=== PATIENT | male | born 1980 | race Caucasian/White ===

== ENCOUNTER → 2016-07-10 | Outpatient (CLI) | payer OTHER, BC ==
[~2016-07-10] MED LIST: ACET325T96 PO; CALC667C4 PO; COPP1TAB PO; ESCI10TA17 PO; FAMO20TA11 PO; GABA-112 PO; MELATAB2 PO
--- NOTE | 2016-07-14 16:02 | EEG Procedure Note ---
EEG Procedure Note Date of Service July 10, 2016. Start / End Times Start Time: 10:15am End Time: 10:36am Referring Physician Dr Cerda History 35 year old male with syncope. EEG to evaluate for possible seizure etiology. Home meds: Gabapentin Home Medication List Scheduled Calcium Acetate (Phoslo 667 Mg), 4 CAPSULES PO TIDM Copper Gluconate (Copper), 2 MG PO QAM Escitalopram (Lexapro), 10 MG PO QAM Famotidine (Pepcid), 20 MG PO QAM Gabapentin (Neurontin), 100 MG PO HS Melatonin (Melatonin Maximum Strengt), 1 TAB PO HS Scheduled PRN Acetaminophen Tab (Tylenol), 325 MG PO PRN PRN for Pain Description This is a 21 electrode EEG with a single channel dedicated to limited EKG. The electrodes were placed in accordance with the International 10-20 system. At the start of the recording the patient was in an awake state. The background was well organized and composed of symmetric mixed alpha and beta frequencies. There was a well formed symmetric moderate amplitude posterior dominant rhythm of 8-9Hz that was reactive to eye opening and closure. Hyperventilation with good effort produced no abnormalities. Photic stimulation at various frequencies produced no abnormalities. Drowsiness was indicated by slowing of the background rhythm and loss of muscle artifact. There was no sleep transients. Interpretation This is a normal awake and drowsy routine EEG There was no electrographic seizures or epileptiform discharges. Clinical Correlation A normal EEG does not rule out epilepsy if there is a strong clinical suspicion.
== END | disposition home or self-care (01) ==
LOC: C.NEUR 09:58
PROVIDERS: ATTEND Internal Medicine
DX: R55 Syncope and collapse (principal)

== ENCOUNTER 2020-04-07 15:36 | Observation (INO) ==
--- NOTE | 2020-04-07 16:22 | Emergency Department Note ---
Impression & Plan Acute anxiety, Depression with suicidal ideation ED Provider Note Provider: Johnson Bell MD DATE OF SERVICE:04/07/2020 CHIEF COMPLAINT: Emotional breakdown HISTORY OF PRESENT ILLNESS: Patient is a 39-year-old gentleman history of end- stage renal disease on dialysis with prior failed kidney transplants, hepatitis C, depression/anxiety presenting today from home stating he is having emotional breakdown today. Patient states the holidays are little bit tough but thought things would be okay with his brother visiting him and his mother today and then also down to have dinner without mass. Evidently his brother and his brother's family showed up and wearing masks and this significantly stressed and upset the patient. He states he became very anxious and agitated and things fell apart according to him. Patient denies wishing to harm anybody today or threatening to do so. Patient states he felt very depressed and like he wanted to harm himself however. Patient states he had some thoughts of wanting to possibly throw himself down the stairs or jump off his house. Patient states distantly about 20 years ago he did attempt suicide with medications. Patient follows locally with psychiatry and a counselor. Patient states compliant with home medications and states he did take a dose of his Xanax prior to coming over and that may have helped a little bit. Did take a little bit a nap after this but still quite anxious when awoke and came here for evaluation. Patient states he is just very anxious as well as depressed and is having some thoughts again of wanting to harm himself and not be alive. Denies significant physical pain complaint at this time. Given the holidays his dialysis is scheduled for tomorrow. Patient psychiatrist later calls and states that she received a call from the patient's mother and repeated a similar story. She is concerned his ability to go home and care for himself. REVIEW OF SYSTEMS: A total of 10 review of systems was obtained and negative except as stated above in the HPI. PAST MEDICAL HISTORY: As noted above MEDICATIONS: Reviewed home medications SOCIAL HISTORY: Denies drugs, alcohol, or tobacco use. Lives at home with his mother, on disability PHYSICAL EXAM: GENERAL: alert and oriented sitting in bed crying with Kleenex Head: normocephalic and atraumatic EYES: No injection, discharge or icterus. NECK: Trachea midline. Supple. ENT: Mucous membranes pink and moist LUNGS: Airway patent. No retractions. Breath sounds clear with good air entry bilaterally. HEART: Regular rate and rhythm. No chest wall tenderness SKIN: Acyanotic, warm, dry, without rashes EXTREMITIES: Without significant swelling or deformity of the lower extremities. NEUROLOGICAL: No focal deficits. No aphasia. No facial droop or slurred speech. Psych: Patient states he is feeling highly anxious and depressed. His animated and tearful breaking down into sobbing at various points. States he has had thoughts of going to harm self and possibly jumping off his roof or down the steps. Denies homicidal ideation or wishing to harm anybody else. Denies hallucination. EK beats per normal sinus rhythm PVC or PAC. No acute ST segment elevation noted. QTc 448. Compared to previous from August 17, 2018 no significant change. PDMP was checked without noted issue. Patient's laboratory studies reviewed. Differential includes Mood disorder, infection, hypoglycemia, electrolyte abnormalities, cardiac sources, intracerebral event, toxicologic, trauma, neurologic, as well as other pathologies. IMPRESSION/MEDICAL DECISION MAKING: Patient presents after an emotional breakdown per his report and emotional on exam here stating depression with some suicidal ideation. History of suicide attempt in the past. Complex medical history including dialysis scheduled for tomorrow. Denies current attempt to harm himself. Basic labs were obtained without evidence of significant overdose at this time. Creatinine elevation consistent with his need for dialysis tomorrow. No severe electrolyte abnormalities and do not believe he needs emergent dialysis at this time tonight. Patient is anuric and does not make urine so urine samples were not collected.. Some baseline leukopenia and anemia are noted and similar to previous values. Patient wishes for possible inpatient treatment and patient psychiatrist called in and states she believes he would benefit from this as well. Patient was seen by our psychiatric case management coordinator for evaluation as well. Patient requesting inpatient treatment I believe this is very reasonable given that he had significant thoughts of wanting to harm self tonight and actually had some plans. Referrals made but complex medical history will limit available inpatient psychiatric bed. Patient did later coming back to his room and did discuss with me possibility of wanting to stop all medications and dialysis and discussed with him given that he is having acute depression with some suicidal ideation this could not occur acutely wanted to be part of a possible longer discussion when he is stable from a psychiatric standpoint. He acknowledges. Evening meds ordered. As it appears is unlikely he will get an inpatient psychiatric bed overnight and requires dialysis scheduled for tomorrow, discussed with nephrology via phone who stated they would be in-house and available tomorrow to possibly perform dialysis if needed; did discuss possible need to work with case management to determine appropriate status for the patient for this to be done from the ER versus as an inpatient. Discussed with her case management coordinator is here. Unsure if the patient requires an observation or admitted status here for this to occur. No emergent need for dialysis tonight. Given his mental status do not feel the patient is stable for discharge home and follow-up. Case management will continue to discuss with her casting and pasting supervisor etc. tomorrow morning. Will sign the patient out pending psychiatric placement. Will need to discuss with nephrology tomorrow morning about obtaining dialysis for the patient tomorrow. Do not see an acute reason for medical admission at this time however if it becomes necessary tomorrow to facilitate his dialysis -- which he will need tomorrow-- may unfortunately be necessary at that time. DIAGNOSIS: Anxiety, depression with suicidal ideation DISPOSITION: Signed out pending inpatient psychiatric placement to Dr. He Past Med/Surg History Medical History (Updated 04/07/20 @ 17:26 by Johnson Bell M.D.) Anxiety Depression ESRD on dialysis H/O genitourinary system abnormality h/o bladder enterocystoplasty, h/o urethra surgery mitrofanoff procedure Hepatitis C Kidney transplant failure Social History Smoking Status: Never smoker Second Hand Exposure: No; Hx Alcohol Use: Yes Alcohol type: hard liquor Hx Substance Use: No Preferred Language: Ukrainian Communication Ability: Effective Supervisor [employer] Required: No Beliefs That Will Affect Care: None Current Living Situation: Parent Feels Safe at Home: No Assistive Devices: None Allergies Allergies Allergy/AdvReac Type Severity Reaction Status Date / Time meperidine Allergy Unknown "unresponsi Verified 04/07/20 16:21 ve" gentamicin AdvReac Mild HALLUCINATI Verified 04/07/20 16:21 ONS Home Meds Home Medications Medication Instructions Recorded Confirmed copper gluconate 2 mg PO QDL 03/02/18 04/07/20 escitalopram oxalate 10 mg PO QAM 03/02/18 04/07/20 famotidine 20 mg PO QDL 03/02/18 04/07/20 lanthanum 1,000 mg PO TIDM 03/02/18 04/07/20 sertraline 50 mg tablet 50 mg PO DAILY 01/12/19 04/07/20 buspirone 10 mg PO BID 04/07/20 04/07/20 Previous Rx's Medication Instructions Recorded clonazepam 1 mg tablet 1 mg PO HS #30 tab 12/10/18 vit B complex with C-folic acid 5 1 tab PO DAILY #90 tab 08/13/19 mg-copper 1.5 mg-zinc 25 mg tablet gabapentin 100 mg capsule 100 mg PO HS #90 cap 10/15/19 Results & Data (ED) Vital Signs Vital Signs - 24 hr 04/07/20 15:41 04/07/20 16:03 04/07/20 19:44 Temperature 36.5 C Temperature Source Oral Oral Pulse Rate 81 Pulse Rate [Finger] 65 Respiratory Rate 18 14 Respiratory Effort / Characteristics Non-Labored Spontaneous Respiratory Depth Normal Blood Pressure 207/95 H Blood Pressure [Right Arm] 178/98 H Blood Pressure Mean 132 Blood Pressure Mean [Right Arm] 124 Blood Pressure Position Sitting Pulse Oximetry 97 99 Oxygen Delivery Method Room Air Room Air Sepsis Recent Fever Within 48 Hours No Sepsis New/Unexplained Change in Mental Status No Sepsis Action Taken by Nursing No Action Required Laboratory Data Result diagrams: 04/07/20 16:16 04/07/20 16:16 Lab Results 04/07/20 04/07/20 04/07/20 Range/Units 16:16 16:16 16:16 WBC 4.46 L (4.8-10.8) K/uL RBC 3.27 L (4.7-6.1) M/uL Hgb 10.2 L (14.0-18.0) g/dL Hct 31.9 L (42-52) % MCV 97.6 (80-100) fL MCH 31.2 (25-34) pg MCHC 32.0 (32-36) g/dL RDW Std Deviation 48.7 H (36.4-46.3) fL RDW Coeff of Greg 13.8 (11.5-14.5) % Plt Count 214 (130-400) K/uL MPV 10.6 H (7.4-10.4) fL Immature Gran % (Auto) 0.0 % Neut % (Auto) 55.2 % Lymph % (Auto) 35.2 % Dickey % (Auto) 7.4 % Eos % (Auto) 2.0 % Baso % (Auto) 0.2 % Neut # (Auto) 2.46 (1.4-6.5) K/uL Lymph # (Auto) 1.57 (1.2-3.4) K/uL Dickey # (Auto) 0.33 (0.11-0.59) K/uL Eos # (Auto) 0.09 (0-0.5) K/uL Baso # (Auto) 0.01 (0-0.2) K/uL Immature Gran # (Auto) 0.00 (0.00-0.02) K/uL Sodium 141 (136-145) mmol/L Potassium 4.6 (3.5-5.1) mmol/L Chloride 101 (98-107) mmol/L Carbon Dioxide 30 (21-32) mmol/L Anion Gap 10.0 (3-11) BUN 69 H (7-18) mg/dl Creatinine 11.50 H* (0.6-1.4) mg/dl Est Cr Clr Drug Dosing Not Reportable Est GFR ( Amer) 5.7 Est GFR (Non-Af Amer) 4.9 BUN/Creatinine Ratio 6.1 L (10-20) Glucose 100 H (70-99) mg/dl Calcium 8.9 (8.5-10.1) mg/dl Total Bilirubin 0.3 (0.2-1) mg/dl AST 21 (15-37) U/L ALT 16 (12-78) U/L Alkaline Phosphatase 138 H (45-117) U/L Total Protein 7.6 (6.4-8.2) gm/dl Albumin 3.4 (3.4-5.0) gm/dl Globulin 4.2 H (2.5-4.0) gm/dl Albumin/Globulin Ratio 0.8 L (0.9-2) TSH 1.950 (0.300-4.500) uIu/ml Salicylates < 1.7 L (2.8-20) mg/dl Acetaminophen < 2 L (10-30) ug/ml Ethyl Alcohol mg/dL (0-3) mg/dl SARS-CoV-2 Ag (Rapid) (Negative) 04/07/20 04/07/20 Range/Units 16:16 Unknown WBC (4.8-10.8) K/uL RBC (4.7-6.1) M/uL Hgb (14.0-18.0) g/dL Hct (42-52) % MCV (80-100) fL MCH (25-34) pg MCHC (32-36) g/dL RDW Std Deviation (36.4-46.3) fL RDW Coeff of Greg (11.5-14.5) % Plt Count (130-400) K/uL MPV (7.4-10.4) fL Immature Gran % (Auto) % Neut % (Auto) % Lymph % (Auto) % Dickey % (Auto) % Eos % (Auto) % Baso % (Auto) % Neut # (Auto) (1.4-6.5) K/uL Lymph # (Auto) (1.2-3.4) K/uL Dickey # (Auto) (0.11-0.59) K/uL Eos # (Auto) (0-0.5) K/uL Baso # (Auto) (0-0.2) K/uL Immature Gran # (Auto) (0.00-0.02) K/uL Sodium (136-145) mmol/L Potassium (3.5-5.1) mmol/L Chloride (98-107) mmol/L Carbon Dioxide (21-32) mmol/L Anion Gap (3-11) BUN (7-18) mg/dl Creatinine (0.6-1.4) mg/dl Est Cr Clr Drug Dosing Est GFR ( Amer) Est GFR (Non-Af Amer) BUN/Creatinine Ratio (10-20) Glucose (70-99) mg/dl Calcium (8.5-10.1) mg/dl Total Bilirubin (0.2-1) mg/dl AST (15-37) U/L ALT (12-78) U/L Alkaline Phosphatase (45-117) U/L Total Protein (6.4-8.2) gm/dl Albumin (3.4-5.0) gm/dl Globulin (2.5-4.0) gm/dl Albumin/Globulin Ratio (0.9-2) TSH (0.300-4.500) uIu/ml Salicylates (2.8-20) mg/dl Acetaminophen (10-30) ug/ml Ethyl Alcohol mg/dL < 3.0 (0-3) mg/dl SARS-CoV-2 Ag (Rapid) Negative (Negative) Administered Medications Discontinued Medications Clonazepam (Clonazepam 1 Mg Tab) 1 mg PO NOW STA Stop: 04/07/20 22:07 Last Admin: 04/07/20 22:32 Dose: 1 mg Documented by: [id number] Gabapentin (Gabapentin 100 Mg Cap) 100 mg PO NOW STA Stop: 04/07/20 22:07 Last Admin: 04/07/20 22:31 Dose: 100 mg Documented by: [id number] Sertraline HCl (Sertraline Hcl 50 Mg Tablet) 50 mg PO NOW STA Stop: 04/07/20 22:07 Last Admin: 04/07/20 22:31 Dose: 50 mg Documented by: [id number] Discharge Plan Visit Data Chief Complaint: Mental Health Evaluation Stated Complaint: EMOTIONAL BREAKDOWN ED Provider: Johnson Bell Discharge Problem: Acute anxiety, Depression with suicidal ideation Patient Disposition: Still a Patient Forms Stand Alone Forms: [facility], Suicide Prevention Resources Prescriptions Prescriptions: No Action clonazepam [Klonopin] 1 mg tablet 1 mg PO HS Qty: 30 RF: 2 vit B nind-O-QQ-copper-zinc 5-1.5-25 mg tablet 1 tab PO DAILY Qty: 90 RF: 3 gabapentin 100 mg capsule 100 mg PO HS Qty: 90 RF: 3 sertraline 50 mg tablet 50 mg PO DAILY RF: 0 famotidine 20 mg tablet 20 mg PO QDL RF: 0 escitalopram oxalate 10 mg tablet 10 mg PO QAM RF: 0 lanthanum 1,000 mg tablet,chewable 1,000 mg PO TIDM RF: 0 copper gluconate 2 mg capsule 2 mg PO QDL RF: 0 buspirone 10 mg tablet 10 mg PO BID RF: 0 Referrals Referrals: Gaurang Caballero MD [Primary Care Provider] -
[2020-04-07 16:32] LABS: Basophils # (auto) 0.01 K/uL (0-0.2); Basophils % (auto) 0.2 %; Eosinophils # (auto) 0.09 K/uL (0-0.5); Hematocrit (blood only) 31.9 % (42-52); Hemoglobin 10.2 g/dL (14.0-18.0); Lymphocytes # (auto) 1.57 K/uL (1.2-3.4); Lymphocytes % (auto) 35.2 %; Mean Corpuscular Hemoglobin 31.2 pg (25-34); Mean Corpuscular Volume 97.6 fL (80-100); Mean Platelet Volume 10.6 fL (7.4-10.4); Monocytes # (auto) 0.33 K/uL (0.11-0.59); Monocytes % (auto) 7.4 %; Neutrophils # (auto) 2.46 K/uL (1.4-6.5); Neutrophils % (auto) 55.2 %; Platelet Count 214 K/uL (130-400); RDW Coefficient of Variation 13.8 % (11.5-14.5); RDW Standard Deviation 48.7 fL (36.4-46.3); Red Blood Count 3.27 M/uL (4.7-6.1); White Blood Count 4.46 K/uL (4.8-10.8)
[2020-04-07 17:04] LABS: Acetaminophen < 2 ug/ml (10-30); Alanine Aminotransferase 16 U/L (12-78); Albumin Globulin Ratio 0.8 (0.9-2); Albumin Level 3.4 gm/dl (3.4-5.0); Alkaline Phosphatase 138 U/L (45-117); Aspartate Aminotransferase 21 U/L (15-37); BUN Creatinine Ratio 6.1 (10-20); Bilirubin,Total 0.3 mg/dl (0.2-1); Blood Urea Nitrogen 69 mg/dl (7-18); Calcium 8.9 mg/dl (8.5-10.1); Carbon Dioxide 30 mmol/L (21-32); Chloride 101 mmol/L (98-107); Est GFR (African American) 5.7; Est GFR (Non-African American) 4.9; Globulin 4.2 gm/dl (2.5-4.0); Glucose 100 mg/dl (70-99); Potassium 4.6 mmol/L (3.5-5.1); Salicylate < 1.7 mg/dl (2.8-20); Sodium 141 mmol/L (136-145); Total Protein 7.6 gm/dl (6.4-8.2)
[2020-04-07] MEDS ORDERED: ESCITALOPRAM OXALATE 10 MG TAB PO STA (22:06)
[2020-04-07] MEDS ORDERED: clonazePAM 1 MG TAB PO STA (22:06)
[2020-04-07] MEDS ORDERED: SERTRALINE HCL 50 MG TABLET PO STA (22:06)
[2020-04-07] MEDS ORDERED: GABAPENTIN 100 MG CAP PO STA (22:06)
--- NOTE | 2020-04-08 06:57 | Emergency Department Note ---
ED Visit Note Pt signed out to me at change of shift from Dr. Bell. Pt medically cleared and voluntary at this time, awaiting placement. Please see his note for additional details. Pt is on chronic HD and will need HD in the morning. Dr. Bell did speak with Dr. Martinez about the situation. Will attempt to navigate logistics of having pt dialyzed here in the morning and eventual placement in a psych facility. Pt signed out to Dr. Cooley. .
[2020-04-08] MEDS: busPIRone 5 MG TAB PO SCH ×2 (08:13→21:03)
[2020-04-08 08:45] LABS: BUN Creatinine Ratio 5.8 (10-20); Blood Urea Nitrogen 77 mg/dl (7-18); Calcium 8.8 mg/dl (8.5-10.1); Carbon Dioxide 27 mmol/L (21-32); Chloride 103 mmol/L (98-107); Est GFR (African American) 4.9; Est GFR (Non-African American) 4.2; Glucose 97 mg/dl (70-99); Potassium 5.1 mmol/L (3.5-5.1); Sodium 142 mmol/L (136-145)
--- NOTE | 2020-04-08 09:13 | Emergency Department Note ---
ED Visit Note Patient is a 39-year-old male who was signed out to me by Dr. He. He presented willingly has been having suicidal ideations and has a plan to kill himself. He is a dialysis patient. Normally gets it Friday. Due to the holiday his last dialysis was Friday and he was switching to Friday dialysis. He boarded overnight and the case was discussed with nephrology. They were agreeable with dialyzing him but awaiting care managers to determine if he will be admitted and if it was possible to place him today. Does not seem at this time as though it is possible to place. Discussed with the hospitalist for observation and patient will be admitted and then dialysis will be obtained from the inpatient world. I did discuss with Dr. Salamanca and she is aware and has him on the schedule for dialysis. .
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
--- NOTE | 2020-04-08 11:41 | Nephrology Consultation ---
Date of Consultation April 08, 2020 Assessment & Plan (1) ESRD on dialysis: ESRD on HD MWF at [facility] via AVF, admitted with suicidal ideation. BP, volume status and electrolyte acceptable. Due for dialysis today. -- Plan for dialysis today for 4 hours with 2 K bath. -- Left arm nephrology percussion, dose medications for GFR less than 10 -- continue Nephrocaps and [id number] mg TIDM as phosphate binder, in not in formulary , OK to start on TUMS TIDM -- Epogen for hemoglobin less than 10 Will follow Thank you for allowing me to participate in your patient's care. It was a pleasure to see Da Sn (2) Kidney transplant failure: (3) Depression: (4) Suicidal ideation: History of Present Illness Reason for Consultation: ESRD on hemodialysis, presented with suicidal ideation. History of Present Illness Mr. Duran is a 39 Y O M with complex past medical history including end-stage renal disease on hemodialysis, depression, anxiety presented the to the hospital with suicidal ideation. Nephrology consult was requested for management of hemodialysis. Liborio presented to ER yesterday after he had an episode of emotional outburst and he wanted to her kill himself and then came to ER as he was not safe at home. He has history of depression, anxiety and has been on sertraline, clonazepam, Buspirone and escitalopram. Since admission he has been clinically stable but continue to feel that way. Initially he waited in here for transfer to inpatient psychiatry however it has been difficult to find a facility he is he with dialysis availability. he has end-stage renal disease, on dialysis on Friday, Friday, Friday, did not have dialysis yesterday because of holiday and he was due for dialysis today. Blood pressure, electrolyte, volume status acceptable. Has a functioning AV fistula. Liborio has a longstanding h/o end-stage renal disease, secondary to congenital urologic disease, h/o posterior urethral valves and recurrent urinary tract infections. 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 Had kidney transplants in 1988, 1991 and 1998 but all met with graft failure. eventually reached ESRD by 2006 and has been stable on HD MWF via left RC AVF at [facility] under care of Dr. Cerda. Has h/o parathyroidectomy. He has HTN but no CAD or PVD. He also had significant urological surgery including bladder augmentation. After his third kidney transplant failed, he was irrigating his bladder but had significant discomfort and a pyelocystitis and a decision was made to takedown his bladder augmentation and had a total cystectomy. The current plan is that when another kidney transplant is to be done, he will have an ileal conduit despite the fact that some of his ileum had previously been used for his bladder augmentation procedure. Currently he is getting HD, tolerating well, vitals stable but continues to feel emotional and tearful. Allergies Allergy/AdvReac Type Severity Reaction Status Date / Time meperidine Allergy Unknown "unresponsi Verified 04/07/20 16:21 ve" gentamicin AdvReac Mild HALLUCINATI Verified 04/07/20 16:21 ONS Home Medications Medication Instructions Recorded Confirmed Type copper gluconate 2 mg PO QDL 03/02/18 04/07/20 History escitalopram oxalate 10 mg PO QAM 03/02/18 04/07/20 History famotidine 20 mg PO QDL 03/02/18 04/07/20 History lanthanum 1,000 mg PO TIDM 03/02/18 04/07/20 History clonazepam 1 mg tablet 1 mg PO HS #30 tab 12/10/18 04/07/20 Rx sertraline 50 mg tablet 50 mg PO DAILY 01/12/19 04/07/20 History vit B complex with C-folic acid 5 1 tab PO DAILY #90 tab 08/13/19 04/07/20 Rx mg-copper 1.5 mg-zinc 25 mg tablet gabapentin 100 mg capsule 100 mg PO HS #90 cap 10/15/19 04/07/20 Rx buspirone 10 mg PO BID 04/07/20 04/07/20 History Patient History Medical History (Updated 04/08/20 @ 11:39 by Sherice Martinez MD) Anxiety Depression ESRD on dialysis H/O genitourinary system abnormality h/o bladder enterocystoplasty, h/o urethra surgery mitrofanoff procedure Hepatitis C Kidney transplant failure Suicidal ideation Social History Smoking Status: Never smoker Second Hand Exposure: No; Hx Alcohol Use: Yes Alcohol type: hard liquor Hx Substance Use: No Preferred Language: Spanish Communication Ability: Effective Production Assembler Required: No Beliefs That Will Affect Care: None Current Living Situation: Parent Feels Safe at Home: No Assistive Devices: None Review of Systems Review of Systems: All systems reviewed & are unremarkable except as noted in HPI & below Physical Exam Constitutional: WD/WN, vitals as above no acute distress Eyes: PERRL, conjunctivae normal, anicteric sclerae ENMT: external ear and nose normal, oropharynx normal Ears: no hearing impairment Neck: normal visual inspection and trachea midline Respiratory: normal respiratory effort, lungs clear to auscultation no respiratory distress Cardiovascular: RRR, no murmur, no edema Extremities: + AV fistula Gastrointestinal (Abdomen): normal bowel sounds, soft, nontender, no hepatosplenomegaly Percussion/Palpation: abdomen nontender, no guarding and abdomen not rigid Musculoskeletal: Extremities: extremities normal to inspection Gait: normal gait Skin: no rashes, warm and dry Neurologic: moves all extremities and awake; no focal motor deficits and not confused Psychiatric: Orientation: alert and oriented x 3 Speech: normal rate/rhythm/volume of speech Affect: + tearful affect Mood: + depressed mood Homicidal Thoughts: + reports homicidal thoughts Results & Data ([facility]) Vital Signs (Past 12 Hours) Vital Signs Pulse Resp BP Pulse Ox 04/08/20 08:00 74 18 174/98 H 98 PG Care Time/CCT Total # of Minutes Spent Total Time Spent with Patient: Total time spent is greater than 50% in coordination of care (as documented) at patient's floor/unit and/or counseling patient: Coding Level of Care Code 76025 Inpt Consult Level 5 Diagnoses ESRD on dialysis N18.6; Z99.2 Kidney transplant failure T86.12 Depression F32.9 Suicidal ideation R45.851
--- NOTE | 2020-04-08 13:30 | Electrocardiogram Report ---
Test Reason : Blood Pressure : / mmHG Vent. Rate : 062 BPM Atrial Rate : 062 BPM P-R Int : 130 ms QRS Dur : 094 ms QT Int : 442 ms P-R-T Axes : 040 022 042 degrees QTc Int : 448 ms Normal sinus rhythm Minimal voltage criteria for LVH, may be normal variant Borderline ECG When compared with ECG of 17-AUG-2018 11:40, No significant change was found Confirmed by Gumaro Fischer ([id number]) on 04/08/2020 1:30:00 PM Referred By: REFERRED SELF Confirmed By:Gumaro Fischer
[2020-04-08] MEDS: LANTHANUM 1000 MG PO SCH ×2 (14:17→15:04)
[2020-04-08 14:44] LABS: Blood Urea Nitrogen 24 mg/dl (7-18); Carbon Dioxide 30 mmol/L (21-32); Chloride 99 mmol/L (98-107); Est GFR (Non-African American) 11.2; Glucose 80 mg/dl (70-99); Potassium 3.3 mmol/L (3.5-5.1); Sodium 138 mmol/L (136-145)
[2020-04-08] MEDS: FOSRENOL PO SCH (16:20)
[2020-04-08] MEDS ORDERED: clonazePAM 1 MG TAB PO SCH (23:10)
[2020-04-08] MEDS ORDERED: SERTRALINE HCL 50 MG TABLET PO SCH (23:13)
[2020-04-08] MEDS ORDERED: ESCITALOPRAM OXALATE 10 MG TAB PO SCH (23:13)
[2020-04-08] MEDS ORDERED: GABAPENTIN 100 MG CAP PO SCH (23:14)
[2020-04-09 07:02] LABS: BUN Creatinine Ratio 4.8 (10-20); Calcium 9.3 mg/dl (8.5-10.1); Creatinine Clr Calc Pharmacy 8.5 ml/min; Est GFR (African American) 7.3; Est GFR (Non-African American) 6.3; Potassium 4.5 mmol/L (3.5-5.1)
[2020-04-09] MEDS: FOSRENOL PO SCH ×2 (07:39→12:49)
[2020-04-09] MEDS: busPIRone 5 MG TAB PO SCH (07:40)
[2020-04-09] MEDS ORDERED: NEPHROCAPS PO SCH (09:00)
[2020-04-09] MEDS ORDERED: FAMOTIDINE 20 MG TAB PO SCH (11:30)
--- NOTE | 2020-04-09 11:38 | Nephrology Progress Note ---
Date of Service April 09, 2020 Assessment & Plan (1) ESRD on dialysis: ESRD on HD MWF at [place] via AVF, admitted with suicidal ideation. BP, volume status and electrolyte acceptable, had dialysis yesterday. Hb at goal. -- clinically and emotionally doing better, no suicidal thoughts. -- continue on MWF HD schedule. -- Left arm nephrology percussion, dose medications for GFR less than 10 -- continue Nephrocaps and [id number] mg TIDM as phosphate binder -- Epogen for hemoglobin less than 10 Will follow (2) Kidney transplant failure: (3) Depression: (4) Suicidal ideation: Admission and Anticipated Discharge Date Admission Date: April 08, 2020 Subjective Liborio was seen in his room this. No overnight events. He is feeling better reports no further thought of hurting himself. He spoke with his mom and he feels like overall things are better emotionally. Had dialysis yesterday his regular schedule currently blood pressure electrolyte acceptable. Review of Systems Review of Systems: All systems reviewed & are unremarkable except as noted in Subjective Physical Exam Constitutional: WD/WN, vitals as above no acute distress Neck: normal visual inspection and trachea midline Respiratory: normal respiratory effort, lungs clear to auscultation no respiratory distress Cardiovascular: RRR, no murmur, no edema Extremities: + AV fistula Skin: no rashes, warm and dry Neurologic: moves all extremities and awake; no focal motor deficits and not confused Psychiatric: Orientation: alert and oriented x 3 Speech: normal rate/rhythm/volume of speech Mood: + depressed mood Results & Data ([facility]) Vital Signs (Past 12 Hours) Vital Signs Temp Pulse Resp BP Pulse Ox 04/09/20 07:28 36.6 C 78 18 144/81 H 99 04/08/20 23:43 36.6 C 81 15 132/82 98 PG Care Time/CCT Total # of Minutes Spent Total Time Spent with Patient: Total time spent is greater than 50% in coordination of care (as documented) at patient's floor/unit and/or counseling patient: Coding Level of Care Code 06848 Subseq Hosp Care Lvl 3 Diagnoses ESRD on dialysis N18.6; Z99.2 Kidney transplant failure T86.12 Depression F32.9 Suicidal ideation R45.851
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
--- NOTE | 2020-04-09 16:51 | Hospitalist Progress Note ---
Date of Service April 09, 2020 Assessment & Plan (1) Suicidal ideation: does not have any suicidal thoughts now was very emotionally overwhelmed with family visit during and wanted to jump out of the window as he could not handle the stress . feels stable now , pt lives with his Mother , Psychiatry eval appreciated pt is currently not a threat to himself or to others to avoid future episodes family will allow personal space for [place] - pt is safe to be discharged home as per Psych , does not need inpatient hospital stay out pt follow up with his Psychotherapy /Psychiatry already scheduled . 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 Patient's been on dialysis since [address] Cerda appreciate input from nephrology had Dialysis yesterday BP and Electrolytes stable Discharged home today pt will resume Usual dialysis schedule- Friday from tomorrow Hypertension: BP stable Continue outpatient meds CODE STATUS: Full code DVT prophylaxis: SCD and teds patient is encouraged to ambulate Disposition: pt is discharged home today By CMS guidelines, a determination that the admission or continued stay is not medically necessary has been made by a member of the UR committee and a physician for this hospital stay, therefore a Code 44 will be completed and the Inpatient admission will be changed to outpatient. Admission and Anticipated Discharge Date Admission Date: April 08, 2020 Subjective FOLLOW UP VISIT FOR SUICIDAL IDEATION : feels better today , emotionally much more stable after discussion with Psychiatry no further thought of hurting himself. no anxiety His mother has been very supportive he was emotionally overwhelmed during family visit in [place] as it disrupted his usual routine denies of any anger issues at present he has been speaking with his mom and he feels like overall things are better emotionally. Per Psych - pt is not at risk for self harm or harm to other person already has Therapist and Psychiatry follow up scheduled pt is discharged home today Review of Systems Review of Systems: All systems reviewed & are unremarkable except as noted in HPI & below Psychiatric: as per Subjective / HPI; no depression, no suicidal ideation and no anxiety Physical Exam Constitutional: WD/WN, vitals as above Eyes: + anicteric sclerae ENMT: external ear and nose normal, oropharynx normal Neck: trachea midline, no thyromegaly Respiratory: normal respiratory effort, lungs clear to auscultation Cardiovascular: RRR, no murmur, no edema Gastrointestinal (Abdomen): Percussion/Palpation: abdomen soft; abdomen nontender Musculoskeletal: no cyanosis or clubbing, extremities motor strength 5/5 Skin: no rashes, warm and dry Neurologic: PERRL, EOMI, accommodation nl, no face palsy, no dysarthria Psychiatric: A+Ox3, euthymic affect Results & Data Results & Data ([facility]) Vital Signs (Past 12 Hours) Vital Signs Temp Pulse Resp BP Pulse Ox 04/09/20 16:33 36.7 C 75 16 149/81 H 97 04/09/20 16:27 36.6 C 78 18 144/81 H 99 04/09/20 07:28 36.6 C 78 18 144/81 H 99
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
--- NOTE | 2020-04-09 17:02 | Communication Note ---
Date of Service: April 09, 2020 Code 44 attestation: This is a 39-year-old male with significant past medical history of end-stage renal disease on hemodialysis, anxiety/depression, history of kidney transplant failure, hepatitis C was admitted with suicidal ideation. As per the progress note he was emotionally upset and overwhelmed with the family visit during [place] and wanted to jump out of the window to harm himself. He was evaluated by the psychiatrist and no intention of harming himself was identified. He was evaluated by hydrography teacher for ongoing hemodialysis. His c bansal reviewed and noted that he was medically stable to be discharged. By CMS guidelines, a determination that the admission or continued stay is not medically necessary has been made by a member of the UR committee and a physician for this hospital stay, therefore a Code 44 will be completed and the Inpatient admission will be changed to outpatient. Dr Wilber Bhatia Member UR committee
[2020-04-09] MEDS ORDERED: SERTRALINE HCL 50 MG TABLET PO SCH (21:00)
[2020-04-09] MEDS ORDERED: GABAPENTIN 100 MG CAP PO SCH (21:00)
[2020-04-09] MEDS ORDERED: clonazePAM 1 MG TAB PO SCH (21:00)
[2020-04-09] MEDS ORDERED: ESCITALOPRAM OXALATE 10 MG TAB PO SCH (21:00)
== END 2020-04-09 17:32 | disposition home or self-care (01) | DRG 683 ==
LOC: ED 15:36 → 3W 04-08 09:30 → INTOOBSV 04-08 09:30 → 3W 04-08 13:12

== ENCOUNTER 2021-07-26 08:39 | Observation (INO) ==
[2021-07-26] MEDS ORDERED: ONDANSETRON INJ 2 MG/ML 2 ML VIAL IV STA (09:11)
[2021-07-26] MEDS ORDERED: SODIUM CHLORIDE 0.9% 1000ML 500 ML IV ONE (09:11)
--- NOTE | 2021-07-26 09:19 | Emergency Department Note ---
Impression & Plan Weakness, Hypotension, Anemia, Vomiting ED Provider Note NAME: BENITO COATS AGE: 40 SEX: M : 1980 ARRIVES VIA: Ambulance INFORMANT: [Patient] ED PROVIDER(S): [Vipul Caruso MD] CHIEF COMPLAINT: Hypotension, vomiting HISTORY OF PRESENT ILLNESS: The patient is a 40-year-old male who yesterday was in the ED for a bleeding left arm fistula. He was taken to the operating room and the fistula was repaired. He was discharged. This morning, the patient was weak and had a hard time getting out of bed. He vomited a few times. EMS reported his blood pressure was low in the 90s. He was given a 500 cc bolus in route. The patient denies any fever, cough or congestion. No abdominal or chest pain. He is not really short of breath. He just feels weak. His nausea is still present although, may be a bit better than earlier this morning. Of note, the patient was to have dialysis this morning, he is missing his dialysis appointment. REVIEW OF SYSTEMS: See HPI for pertinent positives and negatives. A total of ten systems were reviewed and were otherwise negative. PMHx/PSHx: See Below SOCIAL HISTORY: See Below. PHYSICAL EXAM: GENERAL: Patient is in no acute distress. HEENT: No acute trauma, normocephalic atraumatic, mucous membranes moist, no nasal congestion, no scleral icterus. NECK: No stridor, no adenopathy, no meningismus, trachea is midline. LUNGS: Clear to auscultation bilaterally, no wheeze, no rhonchi, breath sounds equal. HEART: 2/6 systolic murmur, regular rate and rhythm. ABDOMEN: Soft, nontender, bowel sounds positive, no hernias, no peritonitis. EXTREMITIES: No cyanosis. The proximal portion of the left forearm has a bandage in place. The bandage is dry. NEUROLOGIC: Oriented x 3, no acute motor or sensory deficits, no focal weakness. SKIN: No rash, no jaundice, no diaphoresis. DIFFERENTIAL DIAGNOSIS: Infection, dehydration, metabolic abnormality, hypo/hyperglycemia, electrolyte disturbance, anemia, hypoxia, cardiac sources, intracerebral event, as well as other pathologies. EMERGENCY DEPARTMENT COURSE/PROCEDURES: ECG: Indication was weakness. The ECG shows a normal sinus rhythm with a rate of 95. There is no ST elevation, no PVCs. The QTC is 442. Continuous Cardiac Monitoring: An order was placed for continuous cardiac monitoring. The monitor shows a rate of 91 with normal sinus rhythm. MEDICAL DECISION MAKING: There is a lower white blood cell count. The patient is anemic with a h emoglobin around 7. This is a few point drop for him. Platelet count was normal. Renal panel testing showed a high creatinine at 12.9, this is consistent with his dialysis need. There is no significant electrolyte abnormality requiring emergent correction. Alk phos was slightly elevated, the remaining liver enzymes were unremarkable. ECG showed a normal sinus rhythm, no obvious ischemia. Cardiac enzyme testing did not suggest acute cardiac injury. Patient appeared to be in a euthyroid state. COVID test returned negative. Chest x-ray did not show pneumonia or CHF. On exam, the patient was a bit hypotensive. The patient received a 500 cc saline bolus. I discussed a blood transfusion with him, he did consent. The patient was typed and crossed for 2 units of blood, it was put on hold. I did order for IV Zofran for nausea. The patient requested a lidocaine patch, this was ordered. I spoke with nephrology, the patient is going to be hospitalized. He will receive blood as he is receiving dialysis. I spoke with the patient and case management. The on-call hospitalist was consulted. His weakness is likely a combination of his dialysis need coupled with his anemia. 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 eventually reached ESRD by 2006 Family History (Updated 07/26/21 @ 11:46 by Yoselin Mike PA-C) Other Myocardial infarction Stroke Social History Smoking Status: Never smoker Second Hand Exposure: No; Hx Alcohol Use: No Hx Substance Use: No Preferred Language: German Communication Ability: Effective Personal Injury Attorney Required: No Beliefs That Will Affect Care: None marital status: Single Current Living Situation: Parent Other Information That Helps Us Care for You: No Feels Safe at Home: Yes Assistive Devices: None Allergies Allergies Allergy/AdvReac Type Severity Reaction Status Date / Time meperidine Allergy Unknown "unresponsi Verified 03/27/21 09:35 ve" gentamicin AdvReac Mild HALLUCINATI Verified 03/27/21 09:35 ONS Home Meds Home Medications Medication Instructions Recorded Confirmed copper gluconate 2 mg capsule 2 mg PO QDL 03/02/18 07/26/21 escitalopram oxalate 10 mg tablet 10 mg PO HS 03/02/18 07/26/21 famotidine 20 mg tablet 10 mg PO QDL 03/02/18 07/26/21 lanthanum 1,000 mg chewable tablet 1,000 mg PO TIDM 03/02/18 07/26/21 alprazolam 0.25 mg tablet 0.25 mg PO DAILY 03/27/21 07/26/21 calcitriol 0.25 mcg capsule 0.25 mcg PO MOWEFR 03/27/21 07/26/21 omega-3 fatty acids 1,000 mg 1,000 mg PO DAILY 03/27/21 07/26/21 capsule (Fish Oil Concentrate) aripiprazole 2 mg tablet (Abilify) 2 mg PO HS 07/26/21 07/26/21 lamotrigine 100 mg tablet 100 mg PO DAILY 07/26/21 07/26/21 Previous Rx's Medication Instructions Recorded clonazepam 1 mg tablet (Klonopin) 1 mg PO HS #30 tab 12/10/18 vit B complex with C-folic acid 5 1 tab PO DAILY #90 tab 08/13/19 mg-copper 1.5 mg-zinc 25 mg tablet Results & Data (ED) Vital Signs Vital Signs - 24 hr 07/26/21 08:39 07/26/21 09:24 07/26/21 10:00 Temperature 37.2 C Temperature Source Oral Pulse Rate 91 H 90 Pulse Rate [Right Apical] 98 H Respiratory Rate 18 18 13 Blood Pressure 108/66 122/63 Blood Pressure [Right Arm] 114/67 Blood Pressure Mean 80 82 Blood Pressure Mean [Right Arm] 82 Pulse Oximetry 99 99 95 Oxygen Delivery Method Room Air Room Air Sepsis Recent Fever Within 48 Hours No Sepsis New/Unexplained Change in Mental Status No Sepsis Action Taken by Nursing No Action Required Home Medications Current Medication List: was personally reviewed by me Laboratory Data Attestation: I reviewed the patient's lab results. Result diagrams: 07/26/21 15:17 07/26/21 09:18 Lab Results 07/25/21 07/26/21 07/26/21 Range/Units 11:41 09:18 09:18 WBC 2.62 L (4.8-10.8) K/uL RBC 2.48 L (4.7-6.1) M/uL Hgb 7.4 L (14.0-18.0) g/dL Hct 23.7 L (42-52) % MCV 95.6 (80-100) fL MCH 29.8 (25-34) pg MCHC 31.2 L (32-36) g/dL RDW Std Deviation 52.3 H (36.4-46.3) fL RDW Coeff of Greg 15.0 H (11.5-14.5) % Plt Count 163 (130-400) K/uL MPV 10.4 (7.4-10.4) fL Immature Gran % (Auto) 0.4 % Neut % (Auto) 68.7 % Lymph % (Auto) 13.7 % Wolfe % (Auto) 16.0 % Eos % (Auto) 0.8 % Baso % (Auto) 0.4 % Neut # (Auto) 1.80 (1.4-6.5) K/uL Lymph # (Auto) 0.36 L (1.2-3.4) K/uL Wolfe # (Auto) 0.42 (0.11-0.59) K/uL Eos # (Auto) 0.02 (0-0.5) K/uL Baso # (Auto) 0.01 (0-0.2) K/uL Immature Gran # (Auto) 0.01 (0.00-0.02) K/uL RBC Morphology Unremarkable Sodium 138 (136-145) mmol/L Potassium 4.7 (3.5-5.1) mmol/L Chloride 100 (98-107) mmol/L Carbon Dioxide 23 (21-32) mmol/L Anion Gap 15 H (3-11) BUN 92 H (6-23) mg/dl Creatinine 12.91 H* D (0.6-1.4) mg/dl Est Cr Clr Drug Dosing 6.4 ml/min Est GFR ( Amer) 4.9 ml/min Est GFR (Non-Af Amer) 4.3 ml/min BUN/Creatinine Ratio 7.1 L (10-20) Glucose 105 H (70-99(Fasting)) mg/dl Calcium 9.5 (8.5-10.1) mg/dl Phosphorus 5.7 H (2.5-4.9) mg/dl Magnesium 2.3 (1.7-2.4) mg/dl Total Bilirubin 0.3 (0.2-1.0) mg/dl AST 9 L (13-39) U/L ALT 7 (7-52) U/L Alkaline Phosphatase 163 H (34-104) U/L Troponin I High Sens 9.5 (0-20) pg/ml Total Protein 6.2 (6.0-8.3) gm/dl Albumin 3.6 (3.4-5.0) gm/dl Globulin 2.6 (2.5-4.0) gm/dl Albumin/Globulin Ratio 1.4 (0.9-2) TSH (0.300-4.500) uIu/ml SARS-CoV-2, RNA, NAAT (NEGATIVE) Crossmatch See Detail 07/26/21 07/26/21 Range/Units 09:18 10:19 WBC (4.8-10.8) K/uL RBC (4.7-6.1) M/uL Hgb (14.0-18.0) g/dL Hct (42-52) % MCV (80-100) fL MCH (25-34) pg MCHC (32-36) g/dL RDW Std Deviation (36.4-46.3) fL RDW Coeff of Greg (11.5-14.5) % Plt Count (130-400) K/uL MPV (7.4-10.4) fL Immature Gran % (Auto) % Neut % (Auto) % Lymph % (Auto) % Wolfe % (Auto) % Eos % (Auto) % Baso % (Auto) % Neut # (Auto) (1.4-6.5) K/uL Lymph # (Auto) (1.2-3.4) K/uL Wolfe # (Auto) (0.11-0.59) K/uL Eos # (Auto) (0-0.5) K/uL Baso # (Auto) (0-0.2) K/uL Immature Gran # (Auto) (0.00-0.02) K/uL RBC Morphology Sodium (136-145) mmol/L Potassium (3.5-5.1) mmol/L Chloride (98-107) mmol/L Carbon Dioxide (21-32) mmol/L Anion Gap (3-11) BUN (6-23) mg/dl Creatinine (0.6-1.4) mg/dl Est Cr Clr Drug Dosing ml/min Est GFR ( Amer) ml/min Est GFR (Non-Af Amer) ml/min BUN/Creatinine Ratio (10-20) Glucose (70-99(Fasting)) mg/dl Calcium (8.5-10.1) mg/dl Phosphorus (2.5-4.9) mg/dl Magnesium (1.7-2.4) mg/dl Total Bilirubin (0.2-1.0) mg/dl AST (13-39) U/L ALT (7-52) U/L Alkaline Phosphatase (34-104) U/L Troponin I High Sens (0-20) pg/ml Total Protein (6.0-8.3) gm/dl Albumin (3.4-5.0) gm/dl Globulin (2.5-4.0) gm/dl Albumin/Globulin Ratio (0.9-2) TSH 2.346 (0.300-4.500) uIu/ml SARS-CoV-2, RNA, NAAT NEGATIVE (NEGATIVE) Crossmatch Administered Medications Famotidine (Famotidine 10 Mg Tablet) 10 mg PO QDL JUAN Stop: 08/25/21 11:42 Last Admin: 07/26/21 13:05 Dose: 10 mg Documented by: [id number] Miscellaneous (Lanthanum (Fosrenol) 1000 Mg Chew Tab~Order Awaiting Action) 1 ea N/A QS JUAN Stop: 08/25/21 15:59 Last Admin: 07/26/21 13:05 Dose: Not Given Documented by: [id number] Discontinued Medications Sodium Chloride (Nss 1000ml) 500 mls @ 999 mls/hr IV .Q31M ONE Stop: 07/26/21 09:41 Last Infusion: 07/26/21 09:55 Dose: 0 mls/hr Documented by: [id number] Admin: 07/26/21 09:23 Dose: 999 mls/hr Documented by: [id number] Lidocaine (Lidocaine 5% 1 Patch) 1 patch TD NOW STA Stop: 07/26/21 10:37 Last Admin: 07/26/21 10:38 Dose: 1 patch Documented by: [id number] Ondansetron HCl (Ondansetron Inj 2 Mg/Ml 2 Ml Vial) 4 mg IV NOW STA Stop: 07/26/21 09:12 Last Admin: 07/26/21 09:23 Dose: 4 mg Documented by: [id number] Imaging Data Radiologist's Impression: Chest X-Ray 07/26/21 09:11 SINGLE VIEW CHEST CLINICAL HISTORY: Generalized weakness FINDINGS: An AP, portable, upright chest radiograph is compared to study dated 08/17/2018. The examination is degraded by portable technique and apical lordotic positioning. The heart is enlarged. The pulmonary vasculature is noncongested. The lungs and pleural spaces are clear. No pneumothorax is seen. The bony thorax is grossly intact. Heterogeneous sclerotic change throughout the bony structures suggest renal osteodystrophy. IMPRESSION: Cardiomegaly with no acute cardiopulmonary abnormality. ACT 112: Negative or not required by law. Electronically signed by: Vipul Kuhn M.D. 07/26/2021 9:37 AM Discharge Plan Visit Data Chief Complaint: Hypotension ED Provider: Vipul Caruso Discharge Problem: Weakness, Hypotension, Anemia, Vomiting Patient Disposition: Admitted As Inpatient Condition: Fair Discharge Instructions Interventions: ED Discharge Assessment Last Done: 07/26/21 11:09
[2021-07-26 09:30] LABS: Basophils # (auto) 0.01 K/uL (0-0.2); Basophils % (auto) 0.4 %; Eosinophils # (auto) 0.02 K/uL (0-0.5); Eosinophils % (auto) 0.8 %; Hematocrit (blood only) 23.7 % (42-52); Hemoglobin 7.4 g/dL (14.0-18.0); Immature Granulocytes # (auto) 0.01 K/uL (0.00-0.02); Immature Granulocytes % (auto) 0.4 %; Lymphocytes # (auto) 0.36 K/uL (1.2-3.4); Lymphocytes % (auto) 13.7 %; Mean Corpuscular Hemoglobin 29.8 pg (25-34); Mean Corpuscular Hgb Conc 31.2 g/dL (32-36); Mean Corpuscular Volume 95.6 fL (80-100); Mean Platelet Volume 10.4 fL (7.4-10.4); Monocytes # (auto) 0.42 K/uL (0.11-0.59); Neutrophils % (auto) 68.7 %; Platelet Count 163 K/uL (130-400); RDW Standard Deviation 52.3 fL (36.4-46.3); Red Blood Count 2.48 M/uL (4.7-6.1); White Blood Count 2.62 K/uL (4.8-10.8)
--- NOTE | 2021-07-26 09:38 | XRay Report ---
SINGLE VIEW CHEST CLINICAL HISTORY: Generalized weakness FINDINGS: An AP, portable, upright chest radiograph is compared to study dated 08/17/2018. The examinat ion is degraded by portable technique and apical lordotic positioning. The heart is enlarged. The pul monary vasculature is noncongested. The lungs and pleural spaces are clear. No pneumothorax is seen. The bony thorax is grossly intact. Heterogeneous sclerotic change throughout the bony structures sugg est renal osteodystrophy. IMPRESSION: Cardiomegaly with no acute cardiopulmonary abnormality. ACT 112: Negative or not required by law. Electronically signed by: Vipul Kuhn M.D. 07/26/2021 9:37 AM
[2021-07-26 09:47] LABS: RBC Morphology Unremarkable
[2021-07-26] MEDS ORDERED: SODIUM CHLORIDE 0.9% 250 ML IV PRN ×3 (09:51→17:21)
[2021-07-26 10:05] LABS: Albumin Globulin Ratio 1.4 (0.9-2); Albumin Level 3.6 gm/dl (3.4-5.0); BUN Creatinine Ratio 7.1 (10-20); Bilirubin,Total 0.3 mg/dl (0.2-1.0); Calcium 9.5 mg/dl (8.5-10.1); Creatinine Clr Calc Pharmacy 6.4 ml/min; Est GFR (African American) 4.9 ml/min; Est GFR (Non-African American) 4.3 ml/min; Globulin 2.6 gm/dl (2.5-4.0); Magnesium 2.3 mg/dl (1.7-2.4); Phosphorus 5.7 mg/dl (2.5-4.9); Potassium 4.7 mmol/L (3.5-5.1); Total Protein 6.2 gm/dl (6.0-8.3)
[2021-07-26] MEDS ORDERED: LIDOCAINE 5% 1 PATCH TD STA (10:36)
--- NOTE | 2021-07-26 10:39 | History & Physical Report ---
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 Acute on chronic anemia of renal disease Recent hemorrhage of AV fistula resulting in symptomatic anemia End-stage renal disease on hemodialysis due to congenital urologic disease POD #1 LUE AVF site revision due to hemorrhage, Dr. Ortiz Hyperphosphatemia Admit to telemetry Blood pressures improved with IV fluid bolus Nephrology consulted and on board, patient due for hemodialysis today Patient has been typed and crossed for 2 units, plan to transfuse during hemodialysis Current left upper extremity AV fistula site dressing CDI Patient had AV fistula site revision on 07/[address] Ortiz Renal diet continue home meds follow daily labs Depression with anxiety mood stable continue escitalopram, Abilify and lamictal Pt also on xanax in a.m. and clonazepam in p.m. Hyperparathyroidism s/p parathyroidectomy continue calcitriol DVT ppx: scd/teds due to recent bleeding from fistula site Dispo: med tele, to undergo HD/transfusion today, if tolerates well and stable possibly d/c home tomorrow PCP: Ada FULL CODE Pt was seen and examined in collaboration with Dr. Shaikh History of Present Illness Chief Complaint: Hypotension and weakness x 1 day. 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 Of significance patient has a longstanding h/o end-stage renal disease, secondary to congenital urologic disease, h/o posterior urethral valves and recurrent urinary tract infections. 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 He had kidney transplants in 1988, 1991 and 1998 but all met with graft failure. eventually reached ESRD by 2006 and has been stable on HD MWF via left RC AVF at [facility] under care of Dr. Cerda. He had done HD at home since October 2020. Yesterday when he took his bandage off from HD blood shot everywhere. EMS was summoned and a tourniquet was applied. He was rushed to the ER and unable to stop bleeding, therefore, he went for AVF revision by Dr. Ortiz. He tolerated the procedure well and had additional 75ml blood loss. He was discharged home last evening and was doing well until last evening when he developed nausea. Overnight he had 3-4 episodes of nonbloody emesis and generally felt weak. His mother took his blood pressure which was low, 94/47. He was due for hemodialysis today. He was to actually go to hemodialysis center for fistula recheck, but due to low blood pressure and weakness he presented to ED. He did not take any of his morning medications. He denies any dizziness, lightheaded, syncope, f/c/s, chest pain, sob, cough, abd pain, diarrhea, melena or hematochezia. He is an anuric. He does complain of left shoulder pain. He states he typically has left shoulder pain due to work. Currently it is worse due to tourniquets being placed yesterday. Due to sx EMS was summoned and systolic blood pressures in the 80s. He received a 500 mL bolus and blood pressures improved to the 90s. In ED he remained hypotensive was given an additional 500 mL bolus and blood pressures improved to the low 100s. Lab work revealed significant drop in hemoglobin to 7.4. His baseline is around 10. His electrolytes were stable but creatinine up to 12.91. His phosphorus was elevated at 5.7. ED doctor discussed with patient's investment specialist who recommended admission to hospital for observation. He will also undergo hemodialysis and blood transfusion of 2 units at the same time. Allergies Allergy/AdvReac Type Severity Reaction Status Date / Time meperidine Allergy Unknown "unresponsi Verified 03/27/21 09:35 ve" gentamicin AdvReac Mild HALLUCINATI Verified 03/27/21 09:35 ONS Home Medications Medication Instructions Recorded Confirmed Type copper gluconate 2 mg capsule 2 mg PO QDL 03/02/18 07/26/21 History escitalopram oxalate 10 mg tablet 10 mg PO HS 03/02/18 07/26/21 History famotidine 20 mg tablet 10 mg PO QDL 03/02/18 07/26/21 History lanthanum 1,000 mg chewable tablet 1,000 mg PO TIDM 03/02/18 07/26/21 History clonazepam 1 mg tablet (Klonopin) 1 mg PO HS #30 tab 12/10/18 07/26/21 Rx vit B complex with C-folic acid 5 1 tab PO DAILY #90 tab 08/13/19 07/26/21 Rx mg-copper 1.5 mg-zinc 25 mg tablet alprazolam 0.25 mg tablet 0.25 mg PO DAILY 03/27/21 07/26/21 History calcitriol 0.25 mcg capsule 0.25 mcg PO MOWEFR 03/27/21 07/26/21 History omega-3 fatty acids 1,000 mg 1,000 mg PO DAILY 03/27/21 07/26/21 History capsule (Fish Oil Concentrate) aripiprazole 2 mg tablet (Abilify) 2 mg PO HS 07/26/21 07/26/21 History lamotrigine 100 mg tablet 100 mg PO DAILY 07/26/21 07/26/21 History Past Med/Surg History Medical History (Updated 07/26/21 @ 11:50 by Yoselin Mike PA-C) Anxiety Depression ESRD on dialysis H/O genitourinary system abnormality h/o bladder enterocystoplasty, h/o urethra surgery mitrofanoff procedure Hepatitis C Kidney transplant failure Suicidal ideation Surgical History (Updated 07/26/21 @ 11:45 by Yoselin Mike PA-C) History of carpal tunnel surgery History of parathyroidectomy Hx of kidney transplant had kidney transplants in 1988, 1991 and 1998 but all met with graft failure. eventually reached ESRD by 2006 Family History (Updated 07/26/21 @ 11:46 by Yoselin Mike PA-C) Other Myocardial infarction Stroke Social History (Updated 07/26/21 @ 11:46 by Yoselin Mike PA-C) Smoking Status: Never smoker Second Hand Exposure: No; Hx Alcohol Use: No Hx Substance Use: No Preferred Language: Tanzanian Communication Ability: Effective Banquet Cook Required: No Beliefs That Will Affect Care: None marital status: Single Current Living Situation: Parent Feels Safe at Home: Yes Assistive Devices: None Review of Systems Review of Systems: All systems reviewed & are unremarkable except as noted in HPI & below Physical Exam Physical Exam: Constitutional: WD/WN, vitals as above, NAD, sitting up in bed, pleasant, conversing easily Head: Normocephalic, Atraumatic Eyes: PERRL, conjunctivae normal, anicteric sclerae ENMT: external ear and nose normal, oropharynx normal Neck: trachea midline, no thyromegaly normal visual inspection, scar noted inferior to neck Respiratory: normal respiratory effort, lungs clear to auscultation, no wheeze, rales, rhonchi. Normal insp/exp effort, no accessory muscle use Cardiovascular: RRR, 2/6 ARLIN noted throughout precordial leads, but worse RUSB, no edema Vessels: no JVD or carotid bruit Chest: normal inspection of chest Abdomen: normal bowel sounds, soft, nontender, no hepatosplenomegaly, Vertical scar noted on abdomen through umbilicus Musculoskeletal: no cyanosis or clubbing, active range of motion x4, left upper extremity dressing CDI, evidence of prior fistula in right upper extremity Skin: no rashes, warm and dry normal turgor Neurologic: PERRL, EOMI, accommodation nl, no face palsy, no dysarthria CN's II-XI intact bilaterally and moves all extremities Psychiatric: A+Ox3, euthymic affect Lymphatic: no cervical or axillary lymphadenopathy : deferred Results & Data Results & Data ([facility]) Vital Signs (Past 12 Hours) Vital Signs Temp Pulse Pulse Resp BP BP Pulse Ox 07/26/21 10:00 90 13 122/63 95 07/26/21 09:24 98 H 18 114/67 99 07/26/21 08:39 37.2 C 91 H 18 108/66 99 Diagnostic Findings Chest X-Ray 07/26/21 09:11 SINGLE VIEW CHEST CLINICAL HISTORY: Generalized weakness FINDINGS: An AP, portable, upright chest radiograph is compared to study dated 08/17/2018. The examination is degraded by portable technique and apical lordotic positioning. The heart is enlarged. The pulmonary vasculature is noncongested. The lungs and pleural spaces are clear. No pneumothorax is seen. The bony thorax is grossly intact. Heterogeneous sclerotic change throughout the bony structures suggest renal osteodystrophy. IMPRESSION: Cardiomegaly with no acute cardiopulmonary abnormality. ACT 112: Negative or not required by law. Electronically signed by: Vipul Kuhn M.D. 07/26/2021 9:37 AM Operation Date: 07/25/21 08:10 Actual Procedures p Revision of Left Forearm Arteriovenous Fistula with Bovine Graft Interposition(Left) - Winston Ortiz MD Medications Administered Medication List Discontinued Medications Sodium Chloride (Nss 1000ml) 500 mls @ 999 mls/hr IV .Q31M ONE Stop: 07/26/21 09:41 Last Infusion: 07/26/21 09:55 Dose: 0 mls/hr Documented by: [id number] Admin: 07/26/21 09:23 Dose: 999 mls/hr Documented by: [id number] Lidocaine (Lidocaine 5% 1 Patch) 1 patch TD NOW STA Stop: 07/26/21 10:37 Last Admin: 07/26/21 10:38 Dose: 1 patch Documented by: [id number] Ondansetron HCl (Ondansetron Inj 2 Mg/Ml 2 Ml Vial) 4 mg IV NOW STA Stop: 07/26/21 09:12 Last Admin: 07/26/21 09:23 Dose: 4 mg Documented by: [id number] ECG Rate (beats per minute): 82 Rhythm: normal sinus COVID-19 Results Results COVID-19 Adm Lab Results: RBC 2.48 M/uL (4.7-6.1) L 07/26/21 WBC 2.62 K/uL (4.8-10.8) L 07/26/21 Hgb 7.4 g/dL (14.0-18.0) L 07/26/21 Hct 23.7 % (42-52) L 07/26/21 Plt Count 163 K/uL (130-400) 07/26/21 Neutrophils (%) (Auto) 68.7 % 07/26/21 Lymphocytes (%) (Auto) 13.7 % 07/26/21 Monocytes # (Auto) 0.42 K/uL (0.11-0.59) 07/26/21 Eosinophils # (Auto) 0.02 K/uL (0-0.5) 07/26/21 Immature Granulocyte % (Auto) 0.4 % 07/26/21 Neutrophils # (Auto) 1.80 K/uL (1.4-6.5) 07/26/21 Lymphocytes # (Auto) 0.36 K/uL (1.2-3.4) L 07/26/21 Monocytes # (Auto) 0.42 K/uL (0.11-0.59) 07/26/21 Eosinophils # (Auto) 0.02 K/uL (0-0.5) 07/26/21 Basophils # (Auto) 0.01 K/uL (0-0.2) 07/26/21 Immature Granulocyte # (Auto) 0.01 K/uL (0.00-0.02) 07/26/21 Red Blood Cell Morphology Unremarkable 07/26/21 Na 138 mmol/L (136-145) 07/26/21 K 4.7 mmol/L (3.5-5.1) 07/26/21 Cl 100 mmol/L (98-107) 07/26/21 CO2 23 mmol/L (21-32) 07/26/21 Anion Gap 15 (3-11) H 07/26/21 BUN 92 mg/dl (6-23) H 07/26/21 Creatinine 12.91 mg/dl (0.6-1.4) H* 07/26/21 BUN/Creatinine Ratio 7.1 (10-20) L 07/26/21 Glucose Level 105 mg/dl (70-99(Fasting)) H 07/26/21 Ca 9.5 mg/dl (8.5-10.1) 07/26/21 Phosphorus Level 5.7 mg/dl (2.5-4.9) H 07/26/21 Total Bilirubin 0.3 mg/dl (0.2-1.0) 07/26/21 AST/SGOT 9 U/L (13-39) L 07/26/21 ALT/SGPT 7 U/L (7-52) 07/26/21 Alkaline Phosphatase 163 U/L (34-104) H 07/26/21 Total Protein 6.2 gm/dl (6.0-8.3) 07/26/21 Albumin 3.6 gm/dl (3.4-5.0) 07/26/21 Globulin 2.6 gm/dl (2.5-4.0) 07/26/21 Albumin/Globulin Ratio 1.4 (0.9-2) 07/26/21 SARS-CoV-2, RNA, NAAT NEGATIVE (NEGATIVE) 07/26/21 Chest X-Ray 07/26/21 Code Status & VTE Plan Code Status FULL CODE VTE Prophylaxis Plan VTE Prophylaxis will be ordered: Yes Supervising Physician Co-Signing Physician Notes Patient is a 40-year-old male with history of end-stage renal disease on home dialysis, hyperparathyroidism, hemochromatosis and other medical problems presents with history of generalized weakness, hypotension associated with dizziness since one day duration. Patient is due for his dialysis today. Patient had AV fistula revision yesterday by Dr. Otriz for bleeding fistula. Patient was found to have low blood pressure with systolic blood pressure in the 80s by EMS and received bolus of 500 mm IV fluids in route to the hospital. His hemoglobin dropped to 7.4 from 9.2. Please review HPI for complete details transplantation. Blood work suggestive of leukopenia 2.62, hemoglobin 7.4, hematocrit 23.7, BUN 92, creatinine 12.9, glucose 105. Currently patient denies any bleeding issues from fistula. Chest x-ray showed no acute process. On exam patient is moderately built and nourished, no apparent distress, normocephalic/atraumatic, EOMI, decreased breath sounds, clear to auscultation, S1-S2,+ murmur, Trace pedal edema, abdomen soft, nontender, normal bowel sounds, alert, awake, oriented, grossly no focal deficits, left upper extremity AV fistula site and dressing. Patient is admitted for management of hypotension, generalized weakness likely secondary to postoperative acute blood loss anemia and end-stage renal disease. Nephrology consulted for dialysis. Nephrology plans to transfuse blood during dialysis. Fall precautions PT OT evaluation requested. I personally reviewed the record. Patient is interviewed and examined at bedside. Patient's care is coordinated with Yoselin Mike PA-C. Please refer to the documentation above for details of patient's presentation and for discussion of other issues. (1) Hemorrhage of arteriovenous fistula Encounter type: initial encounter Qualified Code(s): T82.838A - Hemorrhage due to vascular prosthetic devices, implants and grafts, initial encounter
[2021-07-26 10:45] LABS: Troponin I High Sensitivity 9.5 pg/ml (0-20)
[2021-07-26] MEDS ORDERED: ACETAMINOPHEN 325 MG TAB PO PRN (11:43)
[2021-07-26] MEDS ORDERED: COPPER GLUCONATE 2 MG PO SCH (11:43)
[2021-07-26] MEDS ORDERED: ONDANSETRON INJ 2 MG/ML 2 ML VIAL IV PRN (11:43)
[2021-07-26] MEDS ORDERED: POLYETHYLENE (MIRALAX) 17 GM PACK PO PRN (11:43)
[2021-07-26] MEDS ORDERED: LANTHANUM 1000 MG PO SCH (12:00)
[2021-07-26] MEDS: FAMOTIDINE 10 MG TABLET PO SCH (13:05)
[2021-07-26 15:54] LABS: Hematocrit (blood only) 21.3 % (42-52); Hemoglobin 6.9 g/dL (14.0-18.0)
--- NOTE | 2021-07-26 17:33 | Nephrology Consultation ---
Date of Consultation July 26, 2021 Assessment & Plan (1) ESRD on dialysis: Maintained on home HD via L RC AVF. Last dialysis treatment completed on 07/24. BP and volume status are acceptable. Hypotension improved with gentle hydration and PRBC transfusion support. Electrolytes are acceptable. There is no emergent indication for dialysis. Orders for HD tomorrow have been entered into the EHR. Renal diet. Document I/O's and daily AM weight. Medications are appropriately dosed for kidney dysfunction. EDW ~60 kg. (2) Hemorrhage of arteriovenous fistula: s/p revision performed by Dr. Ortiz yesterday. Bleeding resolved. Plan to have HD nurse perform treatment with AVF tomorrow. (3) Acute on chronic anemia: 2 u PRBC transfusion support today. Bleeding resolved. Check iron profile in the AM. Noted that iron replacement has been held in the past due to history of hemochromocytosis. Epogen to be provided with HD tomorrow. (4) Hypotension: Attributed to acute blood loss and anemia. Improved with supportive care. Volume status acceptable. History of Present Illness Reason for Consultation: ESRD on HD Requesting Physician: Sterling Shaikh MD Attending Physician: Sterling Shaikh MD History of Present Illness Mr. Kingsley Duran is a 40-year-old male with ESRD. He is maintained on home hemodialysis. His mother is his respiratory care technician. Kingsley dialyzes via a left forearm AVF. Overall, home dialysis has been without notable complications. Kingsley tolerates treatments well. Unfortunately, he presented to the ER at [facility] yesterday after he dislodged a scab from the fistula while taking a shower. He had significantly bleeding requiring surgical intervention. Dr. Ortiz performed revision of the AVF. There were no complications with the procedure and Kingsley was subsequently discharged home. Arrangements were made for an in-center HD treatment at [facility] today. The plan was to have experienced HD nurses use the AVF before Kingsley's mom proceeds with home therapy. His mother was with him when I evaluated the patient in the ER earlier today. Kingsley's last hemodialysis treatment was performed on Friday. Kingsley was experiencing profound weakness this morning. He was found to be hypotensive at home. His mother contacted the nursing program chair non profit financial controller and EMS. Evaluation in the ER notable for acute on chronic anemia with a hemoglobin of 6.9. Hypotension improved after a small bolus of IV saline and PRBC transfusion support x 2 units was arranged. Kingsley was resting comfortably in bed at the time of my assessment. He is anuric. Kingsley underwent total cystectomy in the past due to history of notable UTI. ESRD is related to congenital urologic disease with posterior urethral valves. Anthony right kidney failed to developed. He suffered with recurrent UTI and ESRD at a young age. He has had 3 kidney transplants (1988, 1991, and 1998). Allograft failure associated with a history of rejection and multiple urinary tract infections. He was treated for hepatitis C with Harvoni. He has undergone parathyroidectomy in the past for hyperparathyroidism. He has a significant history of depression and anxiety. He also suffers with severe RLS. Kingsley has not had complications with AVF use otherwise. He denies prolonged bleeding or holding sites >15 minutes post treatment. Allergies Allergy/AdvReac Type Severity Reaction Status Date / Time meperidine Allergy Unknown "unresponsi Verified 03/27/21 09:35 ve" gentamicin AdvReac Mild HALLUCINATI Verified 03/27/21 09:35 ONS Home Medications Medication Instructions Recorded Confirmed Type copper gluconate 2 mg capsule 2 mg PO QDL 03/02/18 07/26/21 History escitalopram oxalate 10 mg tablet 10 mg PO HS 03/02/18 07/26/21 History famotidine 20 mg tablet 10 mg PO QDL 03/02/18 07/26/21 History lanthanum 1,000 mg chewable tablet 1,000 mg PO TIDM 03/02/18 07/26/21 History clonazepam 1 mg tablet (Klonopin) 1 mg PO HS #30 tab 12/10/18 07/26/21 Rx vit B complex with C-folic acid 5 1 tab PO DAILY #90 tab 08/13/19 07/26/21 Rx mg-copper 1.5 mg-zinc 25 mg tablet alprazolam 0.25 mg tablet 0.25 mg PO DAILY 03/27/21 07/26/21 History calcitriol 0.25 mcg capsule 0.25 mcg PO MOWEFR 03/27/21 07/26/21 History omega-3 fatty acids 1,000 mg 1,000 mg PO DAILY 03/27/21 07/26/21 History capsule (Fish Oil Concentrate) aripiprazole 2 mg tablet (Abilify) 2 mg PO HS 07/26/21 07/26/21 History lamotrigine 100 mg tablet 100 mg PO DAILY 07/26/21 07/26/21 History Patient History Medical History (Updated 07/26/21 @ 17:29 by Refugio Leyva DO) Anxiety Depression Depression with suicidal ideation ESRD on dialysis H/O genitourinary system abnormality h/o bladder enterocystoplasty, h/o urethra surgery mitrofanoff procedure Hepatitis C Kidney transplant failure Surgical History History of carpal tunnel surgery History of parathyroidectomy Hx of kidney transplant had kidney transplants in 1988, 1991 and 1998 but all met with graft failure. eventually reached ESRD by 2006 Family History Other Myocardial infarction Stroke Social History Smoking Status: Never smoker Second Hand Exposure: No; Hx Alcohol Use: No Hx Substance Use: No Preferred Language: Thai Communication Ability: Effective Multi Township Assessor Required: No Beliefs That Will Affect Care: None marital status: Single Current Living Situation: Parent Other Information That Helps Us Care for You: No Feels Safe at Home: Yes Assistive Devices: None Review of Systems Constitutional: no weight loss, no weight gain and no problem reported Eyes: no problem reported Ear, Nose, Mouth, Throat: no problem reported Respiratory: no problem reported Cardiovascular: no problem reported Gastrointestinal: no problem reported Musculoskeletal: no problem reported Integumentary: no problem reported Neurologic: no problem reported Psychiatric: no problem reported Endocrine: no problem reported Hematologic / Lymphatic: no problem reported Physical Exam Constitutional: well developed; no acute distress Eyes: + anicteric sclerae; no corneal abnormality ENMT: Mouth: no oral mucosal abnormality and oral mucous membranes not dry Neck: normal visual inspection and trachea midline Respiratory: normal respiratory effort Auscultation: lungs clear to auscultation bilaterally Cardiovascular: Rate/Rhythm: regular rate Heart Sounds: normal S1, normal S2 and + murmur Extremities: + AV fistula (wrapped with dressing CDI, thrill and bruit appreciated. ); no edema Musculoskeletal: Extremities: no cyanosis and no clubbing Skin: normal turgor; no lesions Neurologic: Motor/Sensory: no tremor and no asterixis Psychiatric: Orientation: alert and oriented x 3 Results & Data ([place]) Vital Signs (Past 12 Hours) Vital Signs Temp Pulse Pulse Resp BP BP Pulse Ox 07/26/21 16:22 36.9 C 91 H 119/62 99 07/26/21 14:36 37.1 C 92 H 20 119/57 L 98 07/26/21 11:51 36.9 C 91 H 119/62 99 07/26/21 11:09 83 16 122/66 99 07/26/21 10:00 90 13 122/63 95 07/26/21 09:24 98 H 18 114/67 99 07/26/21 08:39 37.2 C 91 H 18 108/66 99 Laboratory Results Laboratory Results - last 24 hr 07/25/21 07/26/21 07/26/21 11:41 09:18 09:18 WBC 2.62 L RBC 2.48 L Hgb 7.4 L Hct 23.7 L MCV 95.6 MCH 29.8 MCHC 31.2 L RDW Std Deviation 52.3 H RDW Coeff of Greg 15.0 H Plt Count 163 MPV 10.4 Immature Gran % (Auto) 0.4 Neut % (Auto) 68.7 Lymph % (Auto) 13.7 Orange % (Auto) 16.0 Eos % (Auto) 0.8 Baso % (Auto) 0.4 Neut # (Auto) 1.80 Lymph # (Auto) 0.36 L Orange # (Auto) 0.42 Eos # (Auto) 0.02 Baso # (Auto) 0.01 Immature Gran # (Auto) 0.01 RBC Morphology Unremarkable Sodium 138 Potassium 4.7 Chloride 100 Carbon Dioxide 23 Anion Gap 15 H BUN 92 H Creatinine 12.91 H* D Est Cr Clr Drug Dosing 6.4 Est GFR ( Amer) 4.9 Est GFR (Non-Af Amer) 4.3 BUN/Creatinine Ratio 7.1 L Glucose 105 H Calcium 9.5 Phosphorus 5.7 H Magnesium 2.3 Total Bilirubin 0.3 AST 9 L ALT 7 Alkaline Phosphatase 163 H Troponin I High Sens 9.5 Total Protein 6.2 Albumin 3.6 Globulin 2.6 Albumin/Globulin Ratio 1.4 TSH SARS-CoV-2, RNA, NAAT Crossmatch See Detail 07/26/21 07/26/21 07/26/21 09:18 10:19 12:32 WBC RBC Hgb Hct MCV MCH MCHC RDW Std Deviation RDW Coeff of Greg Plt Count MPV Immature Gran % (Auto) Neut % (Auto) Lymph % (Auto) Orange % (Auto) Eos % (Auto) Baso % (Auto) Neut # (Auto) Lymph # (Auto) Orange # (Auto) Eos # (Auto) Baso # (Auto) Immature Gran # (Auto) RBC Morphology Sodium Potassium Chloride Carbon Dioxide Anion Gap BUN Creatinine Est Cr Clr Drug Dosing Est GFR ( Amer) Est GFR (Non-Af Amer) BUN/Creatinine Ratio Glucose Calcium Phosphorus Magnesium Total Bilirubin AST ALT Alkaline Phosphatase Troponin I High Sens 10.5 Total Protein Albumin Globulin Albumin/Globulin Ratio TSH 2.346 SARS-CoV-2, RNA, NAAT NEGATIVE Crossmatch 07/26/21 15:17 WBC RBC Hgb 6.9 L* Hct 21.3 L MCV MCH MCHC RDW Std Deviation RDW Coeff of Greg Plt Count MPV Immature Gran % (Auto) Neut % (Auto) Lymph % (Auto) Orange % (Auto) Eos % (Auto) Baso % (Auto) Neut # (Auto) Lymph # (Auto) Orange # (Auto) Eos # (Auto) Baso # (Auto) Immature Gran # (Auto) RBC Morphology Sodium Potassium Chloride Carbon Dioxide Anion Gap BUN Creatinine Est Cr Clr Drug Dosing Est GFR ( Amer) Est GFR (Non-Af Amer) BUN/Creatinine Ratio Glucose Calcium Phosphorus Magnesium Total Bilirubin AST ALT Alkaline Phosphatase Troponin I High Sens Total Protein Albumin Globulin Albumin/Globulin Ratio TSH SARS-CoV-2, RNA, NAAT Crossmatch PG Care Time/CCT Total # of Minutes Spent Total Time Spent with Patient: Total time spent is greater than 50% in coordination of care (as documented) at patient's floor/unit and/or counseling patient: Coding Level of Care Code 21664 Inpt Consult Level 4 Diagnoses Hemorrhage of arteriovenous fistula T82.838A Encounter type: initial encounter Acute on chronic anemia D64.9 Hypotension I95.9 Hypotension type: unspecified hypotension type ESRD on dialysis N18.6; Z99.2 (1) Hemorrhage of arteriovenous fistula Encounter type: initial encounter Qualified Code(s): T82.838A - Hemorrhage due to vascular prosthetic devices, implants and grafts, initial encounter (2) Hypotension Hypotension type: unspecified hypotension type Qualified Code(s): I95.9 - Hypotension, unspecified
[2021-07-26] MEDS ORDERED: ARIPIprazole 1 MG/ML ORAL SOLN 150 ML BTL PO SCH (21:00)
[2021-07-26] MEDS ORDERED: ESCITALOPRAM OXALATE 10 MG TAB PO SCH (21:00)
[2021-07-26] MEDS ORDERED: clonazePAM 1 MG TAB PO SCH (21:00)
[2021-07-27 01:36] LABS: Hematocrit (blood only) 23.2 % (42-52); Hemoglobin 7.3 g/dL (14.0-18.0)
[2021-07-27] MEDS ORDERED: SODIUM CHLORIDE 0.9% 250 ML IV PRN (02:06)
[2021-07-27] MEDS ORDERED: ACETAMINOPHEN 325 MG TAB PO ONE (03:00)
--- NOTE | 2021-07-27 06:41 | Electrocardiogram Report ---
Test Reason : Blood Pressure : / mmHG Vent. Rate : 095 BPM Atrial Rate : 095 BPM P-R Int : 128 ms QRS Dur : 094 ms QT Int : 352 ms P-R-T Axes : 058 027 039 degrees QTc Int : 442 ms Normal sinus rhythm Normal ECG When compared with ECG of 25-JUL-2021 11:33, No significant change was found Confirmed by Pravin Yu ([id number]) on 07/27/2021 6:40:43 AM Referred By: REFERRED SELF Confirmed By:Pravin Yu
[2021-07-27] MEDS ORDERED: EPOETIN ALFA 20,000 UNITS/ML VIAL IV ONE (07:00)
[2021-07-27 07:46] LABS: Basophils # (auto) 0.01 K/uL (0-0.2); Basophils % (auto) 0.3 %; Eosinophils # (auto) 0.11 K/uL (0-0.5); Eosinophils % (auto) 3.3 %; Hematocrit (blood only) 26.4 % (42-52); Hemoglobin 8.6 g/dL (14.0-18.0); Lymphocytes # (auto) 1.29 K/uL (1.2-3.4); Lymphocytes % (auto) 38.2 %; Mean Corpuscular Hemoglobin 30.6 pg (25-34); Mean Corpuscular Hgb Conc 32.6 g/dL (32-36); Mean Platelet Volume 11.6 fL (7.4-10.4); Monocytes # (auto) 0.37 K/uL (0.11-0.59); Monocytes % (auto) 10.9 %; Neutrophils % (auto) 47.3 %; Platelet Count 154 K/uL (130-400); RDW Coefficient of Variation 14.5 % (11.5-14.5); RDW Standard Deviation 49.8 fL (36.4-46.3); Red Blood Count 2.81 M/uL (4.7-6.1); White Blood Count 3.38 K/uL (4.8-10.8)
[2021-07-27 07:53] LABS: INR 1.1 (0.9-1.1); Prothrombin Time 11.9 Seconds (9.0-12.0)
[2021-07-27] MEDS: LANTHANUM PO SCH ×2 (08:14→14:05)
[2021-07-27 08:17] LABS: BUN Creatinine Ratio 7.4 (10-20); Calcium 9.3 mg/dl (8.5-10.1); Creatinine Clr Calc Pharmacy 5.5 ml/min; Est GFR (African American) 4.1 ml/min; Est GFR (Non-African American) 3.6 ml/min; Magnesium 2.3 mg/dl (1.7-2.4); Potassium 5.4 mmol/L (3.5-5.1)
--- NOTE | 2021-07-27 08:19 | Nephrology Progress Note ---
Date of Service July 27, 2021 Assessment & Plan (1) ESRD on dialysis: Plan: * HD today for use of surgically repaired L RC AVF (bovine graft interposition) * Home dialysis patient: Mon/Tues/Thurs/Fri 4hrs EDW 60kg (2) Hemorrhage of arteriovenous fistula: Plan: * s/p revision w/ interposition bovine graft by Dr. Ortiz 07/25/21 (3) Acute on chronic anemia: Plan: * 2 u PRBC transfusion 07/25/21 * h/o hemochromocytosis. Iron sat 66%, ferritin 381. LESTER scheduled w/ HD today Admission and Anticipated Discharge Date Admission Date: July 26, 2021 Subjective Mr. Duran was evaluated in his hospital room this morning. He is awaiting HD this morning and use of his AVF. He voices no medical concerns. Review of Systems Constitutional: no fever Eyes: no problem reported Ear, Nose, Mouth, Throat: no problem reported Respiratory: no dyspnea Cardiovascular: no chest pain, no palpitations and no edema Gastrointestinal: no abdominal pain, no nausea, no vomiting and no diarrh ea/loose stools Genitourinary: no dysuria, no urinary hesitancy or no hematuria Musculoskeletal: no back pain Integumentary: no rash Neurologic: no confusion Physical Exam Constitutional: no acute distress Eyes: PERRL, conjunctivae normal, anicteric sclerae ENMT: external ear and nose normal, oropharynx normal Neck: trachea midline, no thyromegaly Respiratory: normal respiratory effort, lungs clear to auscultation Cardiovascular: RRR, no murmur, no edema L forearm w/ bulky dressing. AVF + bruit Gastrointestinal (Abdomen): normal bowel sounds, soft, nontender, no hepatosplenomegaly Skin: no rashes, warm and dry Neurologic: awake; not confused Results & Data ([facility]) Vital Signs (Past 12 Hours) Vital Signs Temp Pulse Pulse Resp BP BP Pulse Ox 07/27/21 07:48 37.2 C 67 18 123/55 L 98 07/27/21 07:06 36.4 C L 80 16 137/73 96 07/27/21 06:10 36.6 C 82 16 126/56 L 97 07/27/21 05:30 36.6 C 73 16 127/75 94 07/27/21 05:10 36.5 C 70 16 139/76 95 07/27/21 04:07 36.7 C 72 16 128/69 97 07/27/21 03:55 36.6 C 72 18 120/72 96 07/27/21 03:35 36.6 C 74 18 123/65 97 07/27/21 00:31 36.7 C 77 16 120/63 97 07/26/21 23:01 37 C 83 16 123/64 97 07/26/21 22:30 37 C 84 18 119/63 96 07/26/21 22:17 79 07/26/21 22:01 37 C 83 16 129/71 96 07/26/21 21:30 37.3 C 82 18 112/52 L 97 07/26/21 21:15 37.1 C 83 18 131/66 98 07/26/21 20:58 37.1 C 89 16 131/72 97 Laboratory Results Laboratory Tests 07/27/21 07/27/21 07/27/21 07:04 07:04 07:04 WBC 3.38 L Hgb 8.6 L Hct 26.4 L Plt Count 154 Sodium 135 L Potassium 5.4 H Chloride 98 Carbon Dioxide 24 BUN 110 H Creatinine 14.93 H* D Glucose 96 Calcium 9.3 Phosphorus 6.0 H Magnesium 2.3 Transferrin % Sat 66 H Ferritin Pending PG Care Time/CCT Total # of Minutes Spent Total Time Spent with Patient: Total time spent is greater than 50% in coordination of care (as documented) at patient's floor/unit and/or counseling patient: Coding Level of Care Code 25076 Subseq Hosp Care Lvl 3 Diagnoses ESRD on dialysis N18.6; Z99.2 Hemorrhage of arteriovenous fistula T82.838A Encounter type: initial encounter Acute on chronic anemia D64.9 (1) Hemorrhage of arteriovenous fistula Encounter type: initial encounter Qualified Code(s): T82.838A - Hemorrhage due to vascular prosthetic devices, implants and grafts, initial encounter
[2021-07-27] MEDS ORDERED: CALCITRIOL 0.25 MCG CAPSULE PO SCH (09:00)
[2021-07-27] MEDS ORDERED: OMEGA-3 (PURIFIED FISH OIL) 1 GM CAP PO SCH (09:00)
[2021-07-27] MEDS ORDERED: NEPHROCAPS PO SCH (09:00)
[2021-07-27] MEDS ORDERED: ALPRAZolam 0.25 MG TABLET PO SCH (09:00)
[2021-07-27] MEDS ORDERED: lamoTRIgine 100 MG TAB PO SCH (09:00)
[2021-07-27] MEDS: FAMOTIDINE 10 MG TABLET PO SCH (14:05)
[2021-07-27 14:49] LABS: Hematocrit (blood only) 28.8 % (42-52); Hemoglobin 9.3 g/dL (14.0-18.0)
--- NOTE | 2021-07-27 15:07 | Discharge Summary ---
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 Of significance patient has a longstanding h/o end-stage renal disease, secondary to congenital urologic disease, h/o posterior urethral valves and recurrent urinary tract infections. 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 He had kidney transplants in 1988, 1991 and 1998 but all met with graft failure. eventually reached ESRD by 2006 and has been stable on HD MWF via left RC AVF at [facility] under care of Dr. Cerda. He had done HD at home since October 2020. Yesterday when he took his bandage off from HD blood shot everywhere. EMS was summoned and a tourniquet was applied. He was rushed to the ER and unable to stop bleeding, therefore, he went for AVF revision by Dr. Ortiz. He tolerated the procedure well and had additional 75ml blood loss. He was discharged home last evening and was doing well until last evening when he developed nausea. Overnight he had 3-4 episodes of nonbloody emesis and generally felt weak. His mother took his blood pressure which was low, 94/47. He was due for hemodialysis today. He was to actually go to hemodialysis center for fistula recheck, but due to low blood pressure and weakness he presented to ED. He did not take any of his morning medications. He denies any dizziness, lightheaded, syncope, f/c/s, chest pain, sob, cough, abd pain, diarrhea, melena or hematochezia. He is an anuric. He does complain of left shoulder pain. He states he typically has left shoulder pain due to work. Currently it is worse due to tourniquets being placed yesterday. Due to sx EMS was summoned and systolic blood pressures in the 80s. He received a 500 mL bolus and blood pressures improved to the 90s. In ED he remained hypotensive was given an additional 500 mL bolus and blood pressures improved to the low 100s. Lab work revealed significant drop in hemoglobin to 7.4. His baseline is around 10. His electrolytes were stable but creatinine up to 12.91. His phosphorus was elevated at 5.7. ED doctor discussed with patient's pharmacy messenger who recommended admission to hospital for observation. He will also undergo hemodialysis and blood transfusion of 2 units at the same time. Admission Exam Per Admitting Provider Constitutional: WD/WN, vitals as above, NAD, sitting up in bed, pleasant, conversing easily Head: Normocephalic, Atraumatic Eyes: PERRL, conjunctivae normal, anicteric sclerae ENMT: external ear and nose normal, oropharynx normal Neck: trachea midline, no thyromegaly normal visual inspection, scar noted inferior to neck Respiratory: normal respiratory effort, lungs clear to auscultation, no wheeze, rales, rhonchi. Normal insp/exp effort, no accessory muscle use Cardiovascular: RRR, 2/6 ARLIN noted throughout precordial leads, but worse RUSB, no edema Vessels: no JVD or carotid bruit Chest: normal inspection of chest Abdomen: normal bowel sounds, soft, nontender, no hepatosplenomegaly, Vertical scar noted on abdomen through umbilicus Musculoskeletal: no cyanosis or clubbing, active range of motion x4, left upper extremity dressing CDI, evidence of prior fistula in right upper extremity Skin: no rashes, warm and dry normal turgor Neurologic: PERRL, EOMI, accommodation nl, no face palsy, no dysarthria CN's II-XI intact bilaterally and moves all extremities Psychiatric: A+Ox3, euthymic affect Lymphatic: no cervical or axillary lymphadenopathy : deferred Principal Diagnosis Hypotension, acute on chronic anemia due to blood loss Discharge Exam General: Sitting comfortably in bed, not in distress, on room air HEENT: EOMI, TRACI, MMM Chest: Clear breath sounds bilaterally, no wheezes or crackles CVS: Regular rate and rhythm, normal heart sounds, no murmur Abdomen: Soft, non tender, not distended, normal bowel sounds Neuro: Awake, alert, oriented, conversing well, non focal Extremities: No cyanosis, clubbing or edema. B/L UE with fistula. 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 He received some IVF by EMS and in ED with improvement in his blood pressure. He received 2 U of PRBC transfusion on admission. Underwent uneventful dialysis today. Discussed with nephro and cleared for discharge home. OP dialysis tomorrow at [facility] and resume home dialysis from Friday. Repeat H&H improved to 9.3 from 6.9 on admission. LUE AV fistula repair site looks fine with no more bleeding. Tolerating po well without issues. He looks well and is anxious to get discharged. Discussed discharge plan with patient and mom at bedside. No meds were changed at discharge. Total Time Total Time Spent Total Time Spent (In Minutes): 25 Discharge Plan Discharge Items Patient Disposition: Home - Self-Care Reason For Visit: HYPOTENSION Discharge Diagnosis: Hypotension, anemia Condition on Discharge: Fair Activity: Resume your previous activity Non-emergency contact: Primary Care Provider and Bending Frame Operator Call non-emergency contact if: you have any medication questions and your symptoms worsen Follow-up/Referrals: Gaurang Caballero MD [Primary Care Provider] - (Date & Time 07/31/2021 2:00 PM Provider Madeline Jimenez MD Department General Internal Medicine [facility] ) Diet: Dialysis Renal Addtl Attending Provider Instructions: You will have your dialysis tomorrow at [facility] starting at 10 am. Your home dialysis nurse will be present at your home Friday to resume home treatments. Follow up with Dr Ortiz or nephrology for the fistula questions Pending Studies at Discharge: No Stand-Alone Forms: My quitchen, Smoking Cessation Medications and DC Order Prescriptions: Continued clonazepam [Klonopin] 1 mg tablet 1 mg PO HS Qty: 30 RF: 2 vit B yttb-S-BS-copper-zinc 5-1.5-25 mg tablet 1 tab PO DAILY Qty: 90 RF: 3 omega-3 fatty acids [Fish Oil Concentrate] 1,000 mg capsule 1,000 mg PO DAILY RF: 0 alprazolam 0.25 mg tablet 0.25 mg PO DAILY RF: 0 calcitriol 0.25 mcg capsule 0.25 mcg PO MOWEFR RF: 0 famotidine 20 mg tablet 10 mg PO QDL RF: 0 escitalopram oxalate 10 mg tablet 10 mg PO HS RF: 0 lanthanum 1,000 mg tablet,chewable 1,000 mg PO TIDM RF: 0 copper gluconate 2 mg capsule 2 mg PO QDL RF: 0 lamotrigine 100 mg Tablet 100 mg PO DAILY RF: 0 aripiprazole [Abilify] 2 mg Tablet 2 mg PO HS RF: 0 Discharge Orders: Discharge Order (Routine); Ordered 07/27/21 Ordered By: Yaw Lucio Admission Data Admit Date/Time: 07/26/21 10:32 Attending Provider: Yaw Lucio Admit Provider: Sterling Shaikh Primary Care Provider: Gaurang Caballero Other Providers: Sterling Shaikh ; Refugio Leyva
--- NOTE | 2021-07-27 15:31 | Communication Note ---
Date of Service: July 27, 2021 By CMS guidelines, a determination that the admission or continued stay is not medically necessary has been made by a member of the UR committee and a phys ician for this hospital stay, therefore a Code 44 will be completed and the Inpatient admission will be changed to outpatient.
--- NOTE | 2021-07-27 15:39 | Communication Note ---
Date of Service: July 27, 2021 By CMS guidelines, a determination that the admission or continued stay is not medically necessary has been made by a member of the UR committee and a phys ician for this hospital stay, therefore a Code 44 will be completed and the Inpatient admission will be changed to outpatient. Akhil Palmer MD member, Utilization Review Committee
[2021-07-27 15:50] LABS: BUN Creatinine Ratio 5.6 (10-20); Calcium 9.7 mg/dl (8.5-10.1); Creatinine Clr Calc Pharmacy 11.8 ml/min; Est GFR (African American) 10.4 ml/min; Potassium 3.9 mmol/L (3.5-5.1)
== END 2021-07-27 17:20 | disposition home or self-care (01) ==
LOC: ED 08:39 → 2N 10:32 → INTOOBSV 10:32 → SUATTDRO 10:32 → 2N 11:09